=== PATIENT | female | born 1995 | race Caucasian/White ===

== ENCOUNTER → 2021-10-18 14:55 | Outpatient (BNVA) | payer MEDICAID, SELFPAY | PROVIDERS: Visit Provider Nurse Practitioner Family | DX: K27.9 Peptic ulcer, site unspecified, unspecified as acute or chronic, without hemorrhage or perforation (principal); K21.9 Gastro-esophageal reflux disease without esophagitis; K92.0 Hematemesis | CPT/HCPCS: 80053; 85025 ==

== ENCOUNTER → 2021-10-25 10:49 | Outpatient (BNVA) | payer MEDICAID, SELFPAY | PROVIDERS: Visit Provider Nurse Practitioner | DX: K27.9 Peptic ulcer, site unspecified, unspecified as acute or chronic, without hemorrhage or perforation (principal) | CPT/HCPCS: 80053 ==

== ENCOUNTER → 2021-11-01 09:08 | Outpatient (BNVA) | payer MEDICAID, SELFPAY | PROVIDERS: Referring Provider Nurse Practitioner Family; Visit Provider Surgery | DX: R11.2 Nausea with vomiting, unspecified (principal); R10.11 Right upper quadrant pain | CPT/HCPCS: 99204 ==

== ENCOUNTER 2021-11-04 07:25 | Outpatient (CLI) | payer MEDICAID, SELFPAY ==
--- NOTE | 2021-11-04 07:45 | US_ITS ---
WS: [id number] ULTRASOUND ABDOMEN LIMITED CLINICAL INFORMATION: RUQ Pain COMPARISON: None. FINDINGS: Liver Size: Normal. Craniocaudal length: 14.4 cm. Echogenicity: Normal. Surface nodularity: None. Mass (size and location): None. Bile ducts Intrahepatic ducts: Normal. Common bile duct diameter: 0.5 cm. Gallbladder Dense shadowing cholelithiasis. Gallstones: Present Gallbladder sludge: None. Gallbladder wall thickenin.4 mm Pericholecystic fluid: None. Sonographic Dailey sign: Absent. Pancreas Normal as visualized. Right kidney: Normal. Hydronephrosis: None. Size: 9.7 cm x 3.4 cm x 3.6 cm. Abdominal aorta and IVC Visualized portions are normal. Ascites: None. US/US gall bladder [id number] IMPRESSION: 1. Normal liver. 2. Dense shadowing cholelithiasis. Mild gallbladder wall thickening measuring 3.4 mm. No pericholecystic fluid. 3. Normal common bile duct measuring 5 mm. 4. No hydronephrosis in RIGHT kidney.
== END 2021-11-04 07:26 | disposition home or self-care (01) ==
LOC: RAD 07:27
PROVIDERS: Visit Provider Surgery
DX: K80.20 Calculus of gallbladder without cholecystitis without obstruction (principal)
CPT/HCPCS: 76705

== ENCOUNTER → 2021-11-08 11:00 | Outpatient (BNVA) | payer MEDICAID, SELFPAY | PROVIDERS: Visit Provider Surgery | DX: R10.11 Right upper quadrant pain (principal) | CPT/HCPCS: 80076; 83690 ==

== ENCOUNTER → 2021-11-09 11:08 | Day surgery (SDC) | payer MEDICAID, SELFPAY | PROVIDERS: Visit Provider Surgery | DX: Z01.818 Encounter for other preprocedural examination (principal); K80.20 Calculus of gallbladder without cholecystitis without obstruction; R10.12 Left upper quadrant pain | CPT/HCPCS: 99214 ==

== ENCOUNTER 2021-11-11 17:10 | Outpatient (CLI) | payer MEDICAID, SELFPAY ==
--- NOTE | 2021-11-11 17:30 | MRR_ITS ---
PROCEDURE INFORMATION: Exam: MR Abdomen Without Contrast Exam date and time: 11/11/2021 5:31 PM Age: 26 years old Clinical indication: Abdominal pain; Epigastric; Additional info: R74.8 - abnormal levels of other serum enzymes TECHNIQUE: Imaging protocol: MR of the abdomen without contrast. COMPARISON: US gall bladder [id number] 11/04/2021 7:38 AM FINDINGS: Liver: No mass. Gallbladder and bile ducts: There are numerous tiny gallstones within the gallbladder. There is no gallbladder wall thickening or pericholecystic fluid. Common bile duct is mildly dilated to approximately 8 mm. There are multiple filling defects within the common bile duct which are highly suspicious for common duct stones. Pancreas: Unremarkable. No ductal dilation. Spleen: Unremarkable. No splenomegaly. Adrenal glands: Unremarkable. No mass. Kidneys and ureters: Unremarkable. No solid mass. No hydronephrosis. Stomach and bowel: Visualized stomach and intestines are unremarkable. Intraperitoneal space: No free fluid. Arteries: No abdominal aortic aneurysm. Bones/joints: Unremarkable. Soft tissues: Unremarkable. MR/MR MRCP [id number] IMPRESSION: Cholelithiasis and choledocholithiasis.
== END 2021-11-11 17:11 | disposition home or self-care (01) ==
LOC: RAD 17:16
PROVIDERS: Visit Provider Surgery
DX: K80.70 Calculus of gallbladder and bile duct without cholecystitis without obstruction (principal)
CPT/HCPCS: 74181

== ENCOUNTER → 2022-05-05 11:34 | Outpatient (BNVA) | payer MEDICAID, SELFPAY | PROVIDERS: Visit Provider Nurse Practitioner | DX: Z11.3 Encounter for screening for infections with a predominantly sexual mode of transmission (principal); Z23 Encounter for immunization; Z12.4 Encounter for screening for malignant neoplasm of cervix; N76.0 Acute vaginitis | CPT/HCPCS: 87070; 87205; 87491; 87591; 88175 ==

== ENCOUNTER → 2022-10-26 10:29 | Outpatient (BNVA) | payer MEDICAID, SELFPAY | PROVIDERS: PCP Family Medicine; Visit Provider Family Medicine | DX: Z34.90 Encounter for supervision of normal pregnancy, unspecified, unspecified trimester (principal) | CPT/HCPCS: 80307; 81000; 81025; 84144; 84443; 84702; 85025; 86592; 86762; 86803; 86850; 86900; 87086; 87340; 87491; 87591; 87806; 88175 ==

== ENCOUNTER 2022-11-30 12:54 | Outpatient (CLI) | payer MEDICAID, SELFPAY ==
--- NOTE | 2022-11-30 13:00 | US_ITS ---
WS: [id number] LIMITED OBSTETRICAL ULTRASOUND HISTORY: Dating exam - Unsure LMP COMPARISON: None available. Presentation: Cephalic. Cervix: Closed and normal length. Placenta: Anterior, no previa or abruption. Grade: 0 HEART: FHR of 147 BPM. measurements: BPD = 4.0 cm = 18w1d; HC = 15.1 cm = 18w1d; AC = 12.1 cm = 17w5d; FL = 2.5 cm = 17w4d; Normal amniotic fluid. EFW: 209 g; AGA by ultrasound: 17w6d MYKEL by ultrasound: 05/04/2023 US/US OB <= 14 weeks fetus [id number] IMPRESSION: 1. Single intrauterine gestation of 17 weeks 6 days with an EDC of 05/04/2023. 2. Normal cardiac activity.
== END 2022-11-30 12:55 | disposition home or self-care (01) ==
LOC: RAD 12:57
PROVIDERS: PCP Family Medicine; Visit Provider Family Medicine
DX: Z34.91 Encounter for supervision of normal pregnancy, unspecified, first trimester (principal)
CPT/HCPCS: 76801

== ENCOUNTER → 2023-02-07 09:06 | Outpatient (BNVA) | payer MEDICAID, SELFPAY | PROVIDERS: PCP Family Medicine; Visit Provider Family Medicine | DX: Z34.80 Encounter for supervision of other normal pregnancy, unspecified trimester (principal); R11.2 Nausea with vomiting, unspecified | CPT/HCPCS: 82950 ==

== ENCOUNTER 2023-02-16 14:17 | Outpatient (CLI) | payer MEDICAID, SELFPAY ==
--- NOTE | 2023-02-16 14:15 | US_ITS ---
WS: [id number] OBSTETRICAL ULTRASOUND COMPLETE HISTORY: Anatomy scan, study is performed during late gestational age. COMPARISON: 5 11/30/2022 Single intrauterine gestation in Cephalic presentation. Cervix is Closed and normal length. Cervical length is 4.6 cm. Normal amount of amniotic fluid surrounds the fetus. Placenta: Anterior, no previa or abruption. Placenta grade 1 Heart: 150 BPM. Four chambers are identified. RIGHT and LEFT outflow tracts are unremarkable. Anatomy: Intracranial structures and spine are normal. Cisterna magna is measuring top normal s ize. Intracranial structures are more difficult to visualize during this late gestational age. kidneys, stomach and urinary bladder are unremarkable. Abdominal wall, three-vessel cord and cord ins ertion site are normal. 4 extremities are present. profile: Unremarkable. Gender: Male. measurements: BPD = 7.4 cm = 29w3d; HC = 27.3 cm = 29w5d; AC = 24.8 cm = 29w0d; FL = 5.6 cm = 29w4d; EFW: 1369 g. Not available. Biometry is internally concordant. AGA by ultrasound: 29w3d MYKEL by ultrasound: 05/01/2023 IMPRESSION: 1. Single intrauterine gestation of 29w3d with an MYKEL of 05/01/2023. 2. Late gestational age is limiting evaluation of the anatomy. No abnormalities identified. Ci sterna magna measuring top normal size but it is difficult to obtain appropriate imaging of the intra cranial structures due to late gestational age. No abnormalities are identified. Appropriate growth s wayne the prior ultrasound.
== END 2023-02-16 14:18 | disposition home or self-care (01) ==
LOC: RAD 14:20
PROVIDERS: PCP Family Medicine; Visit Provider Family Medicine
DX: Z34.83 Encounter for supervision of other normal pregnancy, third trimester (principal)
CPT/HCPCS: 76805

== ENCOUNTER → 2023-03-21 08:40 | Outpatient (BNVA) | payer MEDICAID, SELFPAY | PROVIDERS: PCP Family Medicine; Visit Provider Family Medicine | DX: Z51.81 Encounter for therapeutic drug level monitoring (principal); Z34.80 Encounter for supervision of other normal pregnancy, unspecified trimester | CPT/HCPCS: 85025 ==

== ENCOUNTER → 2023-04-04 09:32 | Outpatient (BNVA) | payer MEDICAID, SELFPAY | PROVIDERS: PCP Family Medicine; Visit Provider Family Medicine | DX: Z34.80 Encounter for supervision of other normal pregnancy, unspecified trimester (principal) | CPT/HCPCS: 87081 ==

== ENCOUNTER 2023-05-05 12:47 | Inpatient (IN) | payer MEDICAID, SELFPAY ==
[2023-05-05] VITALS (24 sets, daily range): BP systolic 99–121; BP diastolic 57–73; PULSE 88–104; TEMP 35.7–36.5; BMI 41.1
[2023-05-05 13:54] LABS: Basophils % 0.5 %; Eosinophils # 0.1 10^3/uL (0.0-0.8); Eosinophils % 1.8 %; Hematocrit 38.5 % (36-47); Lymphocytes # 1.5 10^3/uL (0.8-4.8); Lymphocytes % 23.3 %; Mean Corpuscular HGB Conc 32.5 g/dL (30-55); Mean Corpuscular Hemoglobin 32.1 pg (27-33); Mean Platelet Volume 9.1 fL (7.4-10.4); Monocytes # 0.6 10^3/uL (0.2-0.9); Monocytes % 9.7 %; Neutrophils % 64.4 %; Nucleated Red Blood Cells % 0 %; Platelet Count 178 10^3/cmm (157-399); Red Blood Count 3.89 10^6/uL (3.85-5.65); White Blood Count 6.52 10^3/uL (3.29-11.43)
--- NOTE | 2023-05-05 14:45 | PM.HP ---
Providers/Chief Complaint Admitting Physician: Ron Garcia MD Primary Care Provider: Ron Garcia MD Chief Complaint: IOL History of Present Illness Niurka Arredondo is a 28 year old @ 40.1 wks by 17 wk US inconsistent with unsure LMP. Preg c/b obesity, h/o cervical laceration, migraines. The patient presented to labor and delivery for a scheduled induction of labor due to postdates. The patient has been feeling well overall. The patient was found to be 1 cm dilated and thick and high in OB. She declines any headaches, flashes of light, nausea, vomiting, diarrhea, constipation, dysuria, leakage of fluid, vaginal bleeding. Medications/Allergies Home Medications Medication Instructions Recorded Confirmed Last Taken Type prenat.vits,josé,uqc-zrco-erztx 1 tab PO DAILY PRN 10/26/22 05/02/23 Unknown History Allergies Allergy/AdvReac Type Severity Reaction Status Date / Time No Known Allergies Allergy Verified 05/05/22 11:18 PFSH Acute PFSH: Medical History No pertinent past medical history Surgical History History of cholecystectomy Family History Denies family history of Colon cancer Ovarian cancer Diabetes Heart disease Hypercholesteremia Breast cancer Hypertension Uterine cancer Thyroid disease Stroke Social History Smoking and tobacco/nicotine status: never used tobacco/nicotine Alcohol intake: never Substance/Drug Use: never 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 Reproductive History: : 3 Para: 2 Vitals/I&O/Wt Last Vital Signs Pulse 90 05/05/23 14:38 BP 103/62 05/05/23 14:38 O2 Del Method Room Air 05/05/23 13:30 Weight last 48 hrs Weight 240 lb Physical Exam Narrative: General: Alert and oriented x3 Eyes: Pupils equal round and reactive to light and accommodation Mouth: Mucous membranes moist, pharynx non-erythematous Cardiac: Regular rate and rhythm without murmurs Lungs: Clear to auscultation bilaterally without wheezes, crackles or rhonchi Abdomen: Soft, non-tender, fundus consistent with gestational age Extremities: Trace edema in the bilateral lower extremities Data 05/05/23 13:25 A&P Assessment and plan (1) Supervision of normal intrauterine in multigravida: The patient is doing well at this time. We will proceed with induction of labor using Cytotec. heart tones are currently in the mid 140s with moderate variability good accelerations. She has a category 1 tracing. She is not having any significant contractions currently. We will plan to add Pitocin if needed. The patient is wanting to go without an epidural if possible. She is GBS negative. All questions were answered. Proceed with induction of labor as scheduled. Attestations Medical Necessity Statement*: The patient will be here for greater than 2 midnights due to routine intrapartum and management of labor and delivery. Coding Level of Care Code Acute Code for Chg Fwd Diagnoses Supervision of normal intrauterine in multigravida Z34.80
[2023-05-05] MEDS: miSOPROStol 100 mcg tablet 25 MCG VAGINAL (14:51)
[2023-05-06] VITALS (62 sets, daily range): BP systolic 93–144; BP diastolic 51–91; PULSE 80–125; RESP 16–18; TEMP 35.1–36.9; O2SAT 96–99
[2023-05-06] MEDS: dextrose 5%-lactated ringers 1,000 ML 125 ML IV ×3 (01:41→19:11)
[2023-05-06] MEDS: oxytocin 30 UNIT/500 ML BAG IV (01:41)
[2023-05-06] MEDS: fentaNYL 50 mcg/mL INJ 2mL IVP ×4 (06:41→15:19)
--- NOTE | 2023-05-06 08:16 | PM.PN ---
Subjective Subjective: The patient is doing well at this time. She is koko every 2 to 4 minutes. She is on Pitocin 20 units. heart tones are in the mid 130s with moderate variability good accelerations with a category 1 tracing. The patient has had 1 dose of fentanyl and otherwise her pain is well controlled. The patient has no concerns at this time. Vitals/I&O/Wt Last Vital Signs Temp 96.4 F L 05/06/23 06:46 Pulse 94 05/06/23 07:48 Resp 16 05/06/23 06:41 BP 97/65 05/06/23 07:48 O2 Del Method Room Air 05/05/23 13:30 05/05/23 05/06/23 05/06/23 22:59 06:59 14:59 Intake Total 24.417 / 24.417 Balance 24.417 / 24.417 Weight last 48 hrs Weight 240 lb Physical Exam Narrative: General: Alert and oriented x3 Cardiac: Regular rate and rhythm without murmurs Lungs: Clear to auscultation bilaterally without wheezes, crackles or rhonchi Abdomen: Soft, non-tender, fundus consistent with gestational age Extremities: Trace edema in the bilateral lower extremities Data 05/05/23 13:25 A&P Assessment and plan (1) Supervision of normal intrauterine in multigravida: The patient continues to do well at this time. She is making slow but steady progress. She was given 1 dose of Cytotec yesterday and was started on IV Pitocin overnight. She is koko well and currently is 4 cm and 50% effaced. We will have her continue with this dosing for now. The head is ballotable at this point so AROM would not be safe. All questions were answered. Continue with routine intrapartum management. Attestations Medical Necessity Statement*: The patient will be here for greater than 2 midnights due to routine intrapartum and management of labor and delivery. Coding Level of Care Code Acute Code for Chg Fwd Diagnoses Supervision of normal intrauterine in multigravida Z34.80
--- NOTE | 2023-05-06 13:31 | PC.NURSE ---
Pitocin running at 20 milliunits at 0700 when this service writer advisor received shift report; this is not reflected on MAR, previous nurse did not document when Pitocin was titrated to 20 miliunits.
[2023-05-06] MEDS: lidocaine 2% INJ 20 mL INJECTION (19:12)
[2023-05-06] MEDS: oxytocin 30 UNIT/500 ML BAG 600 UNIT IV (19:16)
--- NOTE | 2023-05-06 19:37 | P.PCNOB_ITS ---
Delivery Note: Date of delivery: May 06, 2023 Pre-delivery diagnoses: 1. Intrauterine at 40.2 weeks gestation 2. Obesity 3. History of cervical laceration 4. Migraines Post-delivery diagnoses: 1. Intrauterine status post spontaneous vaginal delivery at 40.2 weeks gestation 2. Obesity 3. History of cervical laceration 4. Migraines 5. Delivery of healthy infant male weighing 8 pounds 3 ounces with Apgars of 8 and 9 6. Second-degree midline perineal laceration with repair Procedure: Spontaneous vaginal livery Secondary midline perineal laceration with repair Delivering Physician: Ron Garcia MD Estimated blood loss (mL): 250 Pre-Delivery Course: Niurka Arredondo is a 28 year old G3 now P3 status post spontaneous vaginal delivery @ 40.2 wks by 17 wk US inconsistent with unsure LMP. Preg was c/b obesity, h/o cervical laceration, migraines. The patient presented to labor and delivery on the afternoon of 05/05/2023 for a scheduled induction of labor due to postdates. The patient was 1 cm dilated and was started on Cytotec. After 1 dose of Cytotec the patient changed to 2 cm dilation and contracted well on her own. She changed to 3 cm, however then stalled out, so IV Pitocin was added. This was gradually increased up to 20 units. The patient may change to 4 centimeters dilation. She then stalled out, so her Pitocin was turned up to 26. The head was not well applied, so we continued with this process. The patient finally made change to 6 cm dilation and the head was well applied. For this reason AROM was performed at 1734 on 05/06/2023. Clear fluid was noted. The patient then made gradual change and was complete by 1854 on 05/06/2023. The patient did not receive an epidural. Delivery: The patient began pushing at 1857 on 05/06/2023. The delivered quickly in the OA position at 1858 on 05/06/2023. The left shoulder was anterior shoulder and it delivered with steady downward pressure. Rest of the infant delivered without complication. The 's mouth and nose were bulb suction by myself and the infant began crying shortly after. The was placed on the mother's chest where the nurses were waiting to care for him. The cord was clamped by myself after approximately 1 minute and cut by the 's father. Cord blood was obtained. The cord was then drained of blood and traction was placed on the umbilical cord and uterine massage was carried out. The placenta delivered at 1902 on 05/06/2023 without complication. It was noted to be intact with a central umbilical cord insertion site. The cervix was inspected and no lacerations were noted. The patient had moderate to heavy bleeding initially. IV Pitocin was bolused and uterine massage was carried out. The patient's bleed ing gradually improved. The vaginal wall was inspected and a second-degree perineal laceration was noted that extended near the rectum, however was not to the rectum. 2% lidocaine was placed locally for anesthesia. The laceration was repaired using 3-0 Vicryl in a running fashion. The patient tolerated this well. A rectal exam was done and no sutures were noted in the rectal vault. The patient had good rectal tone as well. Currently the patient's bleeding is slow. Both the mother and infant are doing well at this time. History History History 3 Term 3 0 Miscarriages/Ectopic 0 Living Children 3 Past Pregnancies Del. Date GA/Weeks Outcome Route Wt Inf Gender Labor Lgth Comp. Anesth esia Location 07/17/17 40 live - full term Vaginal 7 lb 5 oz Male 30 [facility] 04/01/19 40 live - full term Vaginal 7 lb 8 oz Female Ot her [facility] 05/06/23 40 live - full term [facility]: [facility]17 Last Updated by: Ron Garcia MD Elevated 1-hr GTT with normal 3-hr GTT, anemia Delivery Date: 04/01/19 Last Updated by: Ron Garcia MD Cervical laceration, anemia, 2nd degree tear Delivery Date: 05/06/23 Last Updated by: Ron Garcia MD No epidural, GBS negative, second-degree perineal laceration with repair A&P Assessment and plan (1) Spontaneous vaginal delivery: (2) Second degree perineal laceration: Coding Level of Care Code Acute Code for Chg Fwd Diagnoses Spontaneous vaginal delivery O80 Second degree perineal laceration O70.1
[2023-05-06] MEDS: ibuprofen 800 mg tablet PO (21:07)
[2023-05-06] MEDS: benzocaine-menthol 78 gm Canister 1 SPRAY TOPICAL (21:54)
[2023-05-07 00:27] VITALS: BP 107/59; PULSE 81; RESP 17; TEMP 36.7; O2SAT 98
[2023-05-07 01:31] VITALS: BP 94/55; PULSE 80; RESP 16; TEMP 36.7; O2SAT 97
[2023-05-07 02:30] VITALS: BP 102/64; PULSE 93; RESP 17; TEMP 36.8; O2SAT 98
[2023-05-07] MEDS: HYDROcodone-acetaminophen 5-325 mg Tablet PO (03:13)
[2023-05-07 05:25] VITALS: BP 100/65; PULSE 91; RESP 16; TEMP 36.7; O2SAT 99
[2023-05-07 08:28] LABS: Hematocrit 34.1 % (36-47); Mean Corpuscular HGB Conc 32.8 g/dL (30-55); Mean Corpuscular Hemoglobin 31.5 pg (27-33); Mean Corpuscular Volume 96.1 fl (85-98); Mean Platelet Volume 9.3 fL (7.4-10.4); Platelet Count 178 10^3/cmm (157-399); Red Blood Count 3.55 10^6/uL (3.85-5.65); Red Cell Distribution Width 13.9 % (12.1-15.1)
[2023-05-07] MEDS: ibuprofen 800 mg tablet PO ×2 (09:20→14:58)
[2023-05-07] MEDS: docusate sodium 100 mg Capsule PO (09:20)
[2023-05-07] MEDS: prenatal vitamin Capsule 1 CAP PO (09:20)
--- NOTE | 2023-05-07 10:31 | PM.DCS ---
Discharge Providers Date of Admission: 05/06/23 12:07 Date of Discharge: May 07, 2023 Attending Provider at Admission: Ron Garcia MD Attending Provider at Discharge: Ron Garcia MD Primary Care Provider: Ron Garcia MD Diagnoses at Discharge Discharge Diagnosis (1) Spontaneous vaginal delivery: Status: Resolved (2) Second degree perineal laceration: Status: Resolved Other Information Additional DC diagnoses/information: 1.? Intrauterine status post spontaneous vaginal delivery at 40.2 weeks gestation 2.? Obesity 3.? History of cervical laceration 4.? Migraines 5.? Delivery of healthy infant male weighing 8 pounds 3 ounces with Apgars of 8 and 9 6.? Second-degree midline perineal laceration with repair Reason for Visit Reason for Visit: IOL Brief History: Niurka Arredondo is a 28 year old G3 now P3 status post spontaneous vaginal delivery @ 40.2 wks by 17 wk US inconsistent with unsure LMP. Preg was c/b obesity, h/o cervical laceration, migraines. The patient presented to labor and delivery on the afternoon of 05/05/2023 for a scheduled induction of labor due to postdates.? The patient was 1 cm dilated and was started on Cytotec. Hospital Course Hospital Course After 1 dose of Cytotec the patient changed to 2 cm dilation and contracted well on her own.? She changed to 3 cm, however then stalled out, so IV Pitocin was added.? This was gradually increased up to 20 units.? The patient may change to 4 centimeters dilation.? She then stalled out, so her Pitocin was turned up to 26.? The head was not well applied, so we continued with this process.? The patient finally made change to 6 cm dilation and the head was well applied.? For this reason AROM was performed at 1734 on 05/06/2023.? Clear fluid was noted.? The patient then made gradual change and was complete by 1854 on 05/06/2023.? The patient did not receive/want an epidural. The patient began pushing at 1857 on 05/06/2023.? The delivered quickly in the OA position at 1858 on 05/06/2023.? The left shoulder was anterior shoulder and it delivered with steady downward pressure.? Rest of the infant delivered without complication.? The infant's mouth and nose were bulb suction by myself and the began crying shortly after.? The was placed on the mother's chest where the nurses were waiting to care for him.? The cord was clamped by myself after approximately 1 minute and cut by the infant's father.? Cord blood was obtained.? The cord was then drained of blood and traction was placed on the umbilical cord and uterine massage was carried out.? The placenta delivered at 1902 on 05/06/2023 without complication.? It was noted to be intact with a central umbilical cord insertion site.? The cervix was inspected and no lacerations were noted.? The patient had moderate to heavy bleeding initially.? IV Pitocin was bolused and uterine massage was carried out.? The patient's bleeding gradually improved.? The vaginal wall was inspected and a second-degree perineal laceration was noted that extended near the rectum, however was not to the rectum.? 2% lidocaine was placed locally for anesthesia.? The laceration was repaired using 3-0 Vicryl in a running fashion.? The patient tolerated this well.? the patient has done well without complications. Her bleeding has decreased well. She is ambulating, voiding, passing gas and tolerating food by mouth. Her pain is currently well controlled. Routine discharge instructions were discussed and the patient is in agreement with discharge home at this time. She will plan to follow-up with me at 6 weeks or sooner if needed. She will follow-up with Charles at 4 weeks to discuss control options. Physical Exam Narrative: General: Alert and oriented x3 Cardiac: Regular rate and rhythm without murmurs Lungs: Clear to auscultation bilaterally without wheezes, crackles or rhonchi Abdomen: Soft, mild tenderness over uterus. The uterus is firm and 2 cm below the umbilicus. Extremities: Trace edema in the bilateral lower extremities Discharge Data Studies Completed and Pending Laboratory Results WBC 8.50 10^3/uL (3.29-11.43) 05/07/23 07:50 RBC 3.55 10^6/uL (3.85-5.65) L 05/07/23 07:50 Hgb 11.20 g/dL (11.27-16.99) L 05/07/23 07:50 Hct 34.1 % (36-47) L 05/07/23 07:50 MCV 96.1 fl (85-98) 05/07/23 07:50 MCH 31.5 pg (27-33) 05/07/23 07:50 MCHC 32.8 g/dL (30-55) 05/07/23 07:50 RDW 13.9 % (12.1-15.1) 05/07/23 07:50 Plt Count 178 10^3/cmm (157-399) 05/07/23 07:50 MPV 9.3 fL (7.4-10.4) 05/07/23 07:50 Neut % (Auto) 64.4 % 05/05/23 13:25 Lymph % (Auto) 23.3 % 05/05/23 13:25 Brown % (Auto) 9.7 % 05/05/23 13:25 Eos % (Auto) 1.8 % 05/05/23 13:25 Baso % (Auto) 0.5 % 05/05/23 13:25 Neut # (Auto) 4.20 10^3/uL (1.8-7.7) 05/05/23 13:25 Lymph # (Auto) 1.5 10^3/uL (0.8-4.8) 05/05/23 13:25 Brown # (Auto) 0.6 10^3/uL (0.2-0.9) 05/05/23 13:25 Eos # (Auto) 0.1 10^3/uL (0.0-0.8) 05/05/23 13:25 Baso # (Auto) 0.0 10^3/uL (0.0-0.1) 05/05/23 13:25 Nucleated RBC % (auto) 0 % 05/05/23 13:25 Nucleated RBCs # 0.0 /100WBC 05/05/23 13:25 Blood Type A Positive 05/05/23 13:25 Rho(D) Type Positive 05/05/23 13:25 Antibody Screen Negative 05/05/23 13:25 Vitals Last Vital Signs Temp 98.1 F 05/07/23 05:25 Pulse 91 05/07/23 05:25 Resp 16 05/07/23 05:25 BP 100/65 05/07/23 05:25 Pulse Ox 99 05/07/23 05:25 O2 Del Method Room Air 05/07/23 05:25 Discharge Plan Discharge Patient Disposition: Home Condition: Good Prescriptions: New ibuprofen 800 mg Tablet 800 mg PO TID Qty: 60 0RF ferrous sulfate 325 mg (65 mg iron) tablet 325 mg PO DAILY Qty: 14 0RF Continued Adacel(Tdap Adolesn/Adult)(PF) 2 Lf-(2.5-5-3-5 mcg)-5Lf/0.5 mL syringe 0.5 ml IM ONCE Qty: 0.5 0RF prenat.vits,josé,[id number] Tablet 1 tab PO DAILY PRN Discharge Orders: Discharge Order (Routine); Ordered 05/07/23 Ordered By: Ron Garcia Referrals: Charles Talavera NP [Nurse Practitioner] - 3 weeks (Please make follow-up appointment with Charles for control consultation in 3 to 4 weeks) Ron Garcia MD [Primary Care Provider] - 6 Weeks Discharge Diet: Regular Discharge Activity: Resume usual activity Patient Instructions: Depression (DC), Hemorrhage (DC), OB Discharge Report, OB Food/Drug Interaction Guide, Opioid Safety, OB Home Care, Abnormal Bleeding Activity Restrictions/Additional Instructions: Nothing per vagina for 6 weeks. I would recommend showers instead of baths for the first 6 weeks. Discharge Attestations Time Spent in Discharge Care*: greater than 30 min Quality Metrics Clinical Quality Measures [ No reported AMI, CVA or VTE this stay] Coding Level of Care Code Acute Code for Chg Fwd Diagnoses Spontaneous vaginal delivery O80 Second degree perineal laceration O70.1
[2023-05-07 16:35] VITALS: BP 116/57; PULSE 72; TEMP 36.7
[2023-05-07 19:30] VITALS: BP 110/60; PULSE 75; RESP 18; TEMP 36.8
== END 2023-05-07 19:40 | disposition home or self-care (01) | DRG 806 ==
LOC: OPOB 12:49 → OBGYN 12:56
PROVIDERS: Admitting Provider Family Medicine; PCP Family Medicine; Visit Provider Family Medicine
DX: O48.0 Post-term pregnancy (principal); O72.1 Other immediate postpartum hemorrhage; Z37.0 Single live birth; Z3A.40 40 weeks gestation of pregnancy; O70.1 Second degree perineal laceration during delivery; O99.214 Obesity complicating childbirth; E66.9 Obesity, unspecified
CPT/HCPCS: 36415; 59025; 59409; 85025; 85027; 86850; 86900; 96374; 96376; G0378; J2590; J3010; J7121

== ENCOUNTER → 2023-06-20 13:37 | Outpatient (BNVA) | payer MEDICAID, SELFPAY | PROVIDERS: PCP Family Medicine; Visit Provider Clinical Nurse Specialist Adult Health | DX: Z30.9 Encounter for contraceptive management, unspecified (principal); Z71.89 Other specified counseling | CPT/HCPCS: 81025 ==

== ENCOUNTER → 2023-12-20 11:15 | Outpatient (BNVA) | payer MEDICAID, SELFPAY | PROVIDERS: PCP Family Medicine; Visit Provider Nurse Practitioner | DX: G43.119 Migraine with aura, intractable, without status migrainosus (principal); R00.0 Tachycardia, unspecified | CPT/HCPCS: 80053; 84443; 85025 ==